=== PATIENT | male | born 2000 | race Caucasian/White ===

== ENCOUNTER 2023-06-14 14:53 | Emergency (ER) | payer OTHER ==
[~2023-06-14] VITALS: Ht 182.9 cm; Wt 70.0 kg
[2023-06-14 15:01] VITALS: TEMP 98.6
[2023-06-14] MEDS ORDERED: LORazepam 2 MG TABLET PO ONE (16:30)
[2023-06-14] MEDS ORDERED: QUEtiapine FUMARATE 100 MG TABLET PO ONE (16:30)
[2023-06-14 16:45] VITALS: BP 122/51; PULSE 81; RESP 14
[2023-06-14] MEDS ORDERED: QUET100T PO ×2 (16:50→17:09)
[2023-06-14] MEDS ORDERED: DiphenhydrAMINE HCL 50 MG/ML VIAL IM ONE (17:00)
== END 2023-06-14 17:26 | disposition home or self-care (01) ==
LOC: EMS 14:56
DX: F84.0 Autistic disorder (principal); F79 Unspecified intellectual disabilities
CPT/HCPCS: 99284; 96372; J1200